=== PATIENT | female | born 1995 | race Two or more races ===

== ENCOUNTER 2021-04-01 20:05 | Inpatient (IN) | payer BC, OTHER ==
[2021-04-01] MEDS ORDERED: MAGNESIUM SULFATE 20GM/500ML - 20 GM/500 ML INFUS.BAG ONE (21:22)
[2021-04-01] MEDS: DEXTROSE 5%-LACTATED RINGERS 1,000 ML IV SCH (21:30)
[2021-04-01] MEDS ORDERED: MAGNESIUM SULFATE 20GM/500ML - 20 GM/500 ML INFUS.BAG IVPB SCH (21:30)
[2021-04-01] MEDS ORDERED: BETAMET ACET/BETAMET NA PH 30 MG/5 ML VIAL IM ONE (21:31)
[2021-04-01] MEDS ORDERED: BETAMET ACET/BETAMET NA PH 30 MG/5 ML VIAL ONE (21:42)
[2021-04-01 21:50] LABS: BASO % 0.4 % (0-2.0); EOS % 4.4 % (0-4.5); HEMATOCRIT 28.4 % (32.4-45.2); HEMOGLOBIN 9.3 GM/dL (10.7-15.3); LYMPH % 35.2 % (8-40); MCHC 32.8 g/dl (32.0-36.0); MEAN CELL VOLUME 76.2 fl (80-96); MEAN PLT VOLUME 6.7 fl (7.5-11.1); MONO % 7.6 % (3.8-10.2); NEUT % 52.4 % (42.8-82.8); PLATELET COUNT 242 K/MM3 (134-434); RBC 3.73 M/mm3 (3.60-5.2); RDW 16.7 % (11.6-15.6); WHITE BLOOD COUNT 6.8 K/mm3 (4.0-10.0)
[2021-04-01 21:56] LABS: INR 0.99 (0.83-1.09)
[2021-04-01 21:59] LABS: ACTIVATED PTT 24.1 SECONDS (25.2-36.5)
[2021-04-01 22:25] LABS: BLOOD UREA NITROGEN 6.2 mg/dL (7-18); CALCIUM 7.8 mg/dL (8.5-10.1); CREATININE 0.5 mg/dL (0.55-1.3)
[2021-04-01 22:48] LABS: EPI CELLS 7 /uL (0-25.1); HYALINE CASTS 0 /uL (0-3.1); PH,URINE 7.5 (5.0-8.0); URINE APPEARANCE CLEAR; URINE BACTERIA 156 /uL (0-1359); URINE BILIRUBIN NEGATIVE (NEGATIVE); URINE COLOR ORANGE; URINE GLUCOSE (UA) NEGATIVE (NEGATIVE); URINE KETONE NEGATIVE (NEGATIVE); URINE LEUK ESTERASE TRACE (NEGATIVE); URINE NITRITE NEGATIVE (NEGATIVE); URINE PROTEIN TRACE (NEGATIVE); URINE RBC 2682 /uL (0-23.9); URINE WBC 8 /uL (0-25.8)
[2021-04-01 23:01] LABS: HIV INTERPRETATION NEGATIVE (NEGATIVE)
[2021-04-01] MEDS ORDERED: CITRIC ACID/SODIUM CITRATE 30 ML UNIT-DOSE CUP PO ONE (23:35)
[2021-04-01] MEDS ORDERED: MAGNESIUM 4GM/H20 - 4 GM/100 ML IVPB IVPB SCH (23:45)
[2021-04-02 00:21] VITALS: BMI 37.5
[2021-04-02] MEDS: DOCUSATE SODIUM 100 MG CAPSULE (FP) PO SCH ×3 (06:00→22:00)
[2021-04-02] MEDS ORDERED: RHO(D) IMMUNE GLOBULIN 1,500 UNIT DISP.SYRIN IM ONE ×2 (06:36→15:37)
[2021-04-02] MEDS ORDERED: MAGNESIUM SULFATE 20GM/500ML - 20 GM/500 ML INFUS.BAG ONE (15:28)
[2021-04-02] MEDS ORDERED: BETAMET ACET/BETAMET NA PH 30 MG/5 ML VIAL IM ONE (19:45)
[2021-04-02] MEDS ORDERED: MAGNESIUM SULFATE 20GM/500ML - 20 GM/500 ML INFUS.BAG IVPB SCH (19:45)
[2021-04-02] MEDS ORDERED: SODIUM CHLORIDE 500 ML IV ONE (22:00)
[2021-04-02] MEDS: SODIUM CHLORIDE 1,000 ML IV SCH (22:45)
[2021-04-03] MEDS: DEXTROSE 5%-LACTATED RINGERS 1,000 ML IV SCH (07:44)
[2021-04-03] MEDS: DOCUSATE SODIUM 100 MG CAPSULE (FP) PO SCH ×3 (07:44→22:52)
[2021-04-03] MEDS: SODIUM CHLORIDE 1,000 ML IV SCH (16:52)
[2021-04-03] MEDS: FERROUS SO4 325 MG TABLET (FP) PO SCH (22:52)
[2021-04-03] MEDS ORDERED: DEXTROSE 5%-LACTATED RINGERS 1,000 ML IV SCH (23:25)
[2021-04-04] MEDS: DOCUSATE SODIUM 100 MG CAPSULE (FP) PO SCH ×3 (08:10→21:41)
[2021-04-04 08:46] LABS: BASO % 0.1 % (0-2.0); EOS % 0.4 % (0-4.5); HEMATOCRIT 25.5 % (32.4-45.2); HEMOGLOBIN 8.6 GM/dL (10.7-15.3); LYMPH % 39.9 % (8-40); MCH 25.6 pg (25.7-33.7); MCHC 33.5 g/dl (32.0-36.0); MEAN CELL VOLUME 76.4 fl (80-96); MEAN PLT VOLUME 6.6 fl (7.5-11.1); MONO % 7.2 % (3.8-10.2); NEUT % 52.4 % (42.8-82.8); PLATELET COUNT 234 K/MM3 (134-434); RBC 3.34 M/mm3 (3.60-5.2); RDW 16.8 % (11.6-15.6); WHITE BLOOD COUNT 7.2 K/mm3 (4.0-10.0)
[2021-04-04] MEDS: FERROUS SO4 325 MG TABLET (FP) PO SCH ×2 (09:32→21:41)
[2021-04-04] MEDS ORDERED: FERRIC CARBOXYMALTOSE 750 MG in SODIUM CHLORIDE 250 ML IVPB ONE (10:45)
[2021-04-04] MEDS ORDERED: CITRIC ACID/SODIUM CITRATE 30 ML UNIT-DOSE CUP PO ONE (20:15)
[2021-04-05] MEDS: DOCUSATE SODIUM 100 MG CAPSULE (FP) PO SCH ×3 (06:48→21:10)
[2021-04-05] MEDS: FERROUS SO4 325 MG TABLET (FP) PO SCH ×2 (09:38→21:09)
[2021-04-06] MEDS: DOCUSATE SODIUM 100 MG CAPSULE (FP) PO SCH ×2 (06:43→13:31)
[2021-04-06] MEDS: FERROUS SO4 325 MG TABLET (FP) PO SCH (09:44)
[2021-04-06 14:44] VITALS: BP 98/67; PULSE 98; TEMP 99
== END 2021-04-06 17:00 | disposition home or self-care (01) | DRG 833 ==
LOC: JDEL 20:05 → JLDR 20:30 → J3W 04-03 11:25
PROVIDERS: ADMIT Obstetrics & Gynecology Maternal & Fetal Medicine; ATTEND Obstetrics & Gynecology Maternal & Fetal Medicine
DX: O46.8X3 Other antepartum hemorrhage, third trimester (principal); Z3A.33 33 weeks gestation of pregnancy
CPT/HCPCS: 36415; 80048; 81003; 82962; 83735; 85025; 85610; 85730; 86762; 86780; 86850; 86870; 86900; 86901; 86902; 86999; 87086; 87340; 87389; 96372; C9803; J1439; J1561; U0003; U0005

== ENCOUNTER 2021-04-12 16:15 | Inpatient (IN) | payer BC, OTHER ==
[2021-04-12] MEDS ORDERED: DEXTROSE 5%-LACTATED RINGERS 1,000 ML IV SCH (19:30)
[2021-04-12] MEDS ORDERED: RHO(D) IMMUNE GLOBULIN 1,500 UNIT DISP.SYRIN IM ONE (19:52)
[2021-04-12] MEDS ORDERED: NIFEdipine 10 MG CAPSULE (FP) ONE (20:22)
[2021-04-12] MEDS ORDERED: NIFEdipine 10 MG CAPSULE (FP) PO ONE (20:25)
[2021-04-12 20:30] LABS: BASO % 0.3 % (0-2.0); EOS % 1.7 % (0-4.5); HEMATOCRIT 32.5 % (32.4-45.2); HEMOGLOBIN 10.5 GM/dL (10.7-15.3); LYMPH % 39.5 % (8-40); MCH 25.7 pg (25.7-33.7); MCHC 32.3 g/dl (32.0-36.0); MEAN CELL VOLUME 79.7 fl (80-96); MEAN PLT VOLUME 6.8 fl (7.5-11.1); MONO % 7.4 % (3.8-10.2); NEUT % 51.1 % (42.8-82.8); PLATELET COUNT 221 K/MM3 (134-434); RBC 4.08 M/mm3 (3.60-5.2); RDW 18.9 % (11.6-15.6); WHITE BLOOD COUNT 8.2 K/mm3 (4.0-10.0)
[2021-04-12 20:37] LABS: INR 0.97 (0.83-1.09)
[2021-04-12 20:39] LABS: ACTIVATED PTT 24.6 SECONDS (25.2-36.5)
[2021-04-12 20:53] LABS: CALCIUM 8.9 mg/dL (8.5-10.1)
[2021-04-12 20:54] LABS: BLOOD UREA NITROGEN 6.2 mg/dL (7-18)
[2021-04-12 20:57] LABS: CREATININE 0.4 mg/dL (0.55-1.3)
[2021-04-12 21:24] VITALS: BMI 38.4
[2021-04-13] MEDS: NIFEdipine 10 MG CAPSULE (FP) PO SCH ×3 (08:53→22:13)
[2021-04-13] MEDS ORDERED: NIFEdipine 10 MG CAPSULE (FP) ONE (10:06)
[2021-04-13] MEDS ORDERED: FERROUS SO4 325 MG TABLET (FP) PO ONE (16:59)
[2021-04-13] MEDS ORDERED: FERROUS SO4 325 MG TABLET (FP) ONE (18:35)
[2021-04-13] MEDS: DOCUSATE SODIUM 100 MG CAPSULE (FP) PO SCH (22:13)
[2021-04-14] MEDS: NIFEdipine 10 MG CAPSULE (FP) PO SCH ×3 (10:18→22:35)
[2021-04-14] MEDS: DOCUSATE SODIUM 100 MG CAPSULE (FP) PO SCH ×2 (10:20→22:35)
[2021-04-15 08:31] LABS: BASO % 0.3 % (0-2.0); EOS % 1.7 % (0-4.5); HEMATOCRIT 30.9 % (32.4-45.2); HEMOGLOBIN 10.1 GM/dL (10.7-15.3); LYMPH % 36.2 % (8-40); MCHC 32.8 g/dl (32.0-36.0); MEAN CELL VOLUME 79.2 fl (80-96); MEAN PLT VOLUME 6.9 fl (7.5-11.1); NEUT % 54.8 % (42.8-82.8); PLATELET COUNT 199 K/MM3 (134-434); RDW 21.6 % (11.6-15.6); WHITE BLOOD COUNT 7.1 K/mm3 (4.0-10.0)
[2021-04-15] MEDS: DOCUSATE SODIUM 100 MG CAPSULE (FP) PO SCH ×2 (09:56→21:50)
[2021-04-15] MEDS: NIFEdipine 10 MG CAPSULE (FP) PO SCH ×2 (09:56→21:50)
[2021-04-15 10:45] LABS: ANISOCYTOSIS 1+; MACROCYTOSIS 0; PLATELET ESTIMATE NORMAL; TEAR DROP CELLS 1+
[2021-04-16] MEDS ORDERED: FERROUS SO4/VIT C/FA 1 EACH TABLET.ER PO SCH (10:00)
[2021-04-16] MEDS: DOCUSATE SODIUM 100 MG CAPSULE (FP) PO SCH ×2 (11:04→21:32)
[2021-04-16] MEDS: NIFEdipine 10 MG CAPSULE (FP) PO SCH ×2 (11:32→21:32)
[2021-04-17] MEDS: NIFEdipine 10 MG CAPSULE (FP) PO SCH ×2 (10:20→21:49)
[2021-04-17] MEDS: DOCUSATE SODIUM 100 MG CAPSULE (FP) PO SCH ×2 (10:20→21:49)
[2021-04-18] MEDS: DOCUSATE SODIUM 100 MG CAPSULE (FP) PO SCH ×2 (09:31→21:41)
[2021-04-18] MEDS: NIFEdipine 10 MG CAPSULE (FP) PO SCH ×2 (09:52→21:41)
[2021-04-19] MEDS: NIFEdipine 10 MG CAPSULE (FP) PO SCH ×2 (09:47→21:35)
[2021-04-19] MEDS: DOCUSATE SODIUM 100 MG CAPSULE (FP) PO SCH ×2 (09:47→21:34)
[2021-04-20] MEDS: DOCUSATE SODIUM 100 MG CAPSULE (FP) PO SCH (10:39)
[2021-04-20] MEDS: NIFEdipine 10 MG CAPSULE (FP) PO SCH (10:39)
[2021-04-20] MEDS ORDERED: BETAMET ACET/BETAMET NA PH 30 MG/5 ML VIAL IM ONE (15:33)
[2021-04-20] MEDS: LACTATED RINGERS SOLUTION 1,000 ML/1,000 ML INFUS.BAG IV SCH (16:15)
[2021-04-20] MEDS ORDERED: BETAMET ACET/BETAMET NA PH 30 MG/5 ML VIAL ONE (16:25)
[2021-04-20] MEDS: VITRON C PO SCH (16:40)
[2021-04-20 17:05] LABS: BASO % 0.8 % (0-2.0); EOS % 1.2 % (0-4.5); HEMATOCRIT 32.7 % (32.4-45.2); HEMOGLOBIN 10.6 GM/dL (10.7-15.3); LYMPH % 35.4 % (8-40); MCH 26.5 pg (25.7-33.7); MCHC 32.5 g/dl (32.0-36.0); MEAN CELL VOLUME 81.3 fl (80-96); MEAN PLT VOLUME 6.6 fl (7.5-11.1); MONO % 6.7 % (3.8-10.2); NEUT % 55.9 % (42.8-82.8); PLATELET COUNT 224 K/MM3 (134-434); RBC 4.02 M/mm3 (3.60-5.2); RDW 23.7 % (11.6-15.6); WHITE BLOOD COUNT 6.5 K/mm3 (4.0-10.0)
[2021-04-20 17:10] LABS: INR 0.97 (0.83-1.09)
[2021-04-20 17:13] LABS: ACTIVATED PTT 25.2 SECONDS (25.2-36.5)
[2021-04-20 18:48] LABS: ANISOCYTOSIS 3+; MACROCYTOSIS 0; PLATELET ESTIMATE NORMAL
[2021-04-20] MEDS ORDERED: morphine SULFATE/PF 0.5 MG/ML (2cc Syringe - QUVA) ONE (19:07)
[2021-04-20] MEDS ORDERED: OXYTOCIN 20 UNITS in 0.9% NS 20 UNIT/1,000 ML INFUS.BAG IV ONE ×2 (19:12→23:42)
[2021-04-20] MEDS ORDERED: KETAMINE HCL 500 MG/10 ML VIAL ONE (20:13)
[2021-04-20] MEDS ORDERED: MIDAZOLAM HCL 2 MG/2 ML SINGLE DOSE VIAL ONE (20:15)
[2021-04-20] MEDS ORDERED: PHENYLEPHRINE HCL 10 MG/1 ML SINGLE DOSE VIAL ONE (20:18)
[2021-04-20] MEDS ORDERED: DEXAMETHASONE SOD PHOSPHATE 4 MG/1 ML VIAL ONE (20:19)
[2021-04-20] MEDS ORDERED: ONDANSETRON 4 MG/2 ML VIAL ONE (20:19)
[2021-04-20] MEDS ORDERED: ceFAZolin SODIUM 1 GM VIAL ONE (20:19)
[2021-04-20] MEDS ORDERED: GLYCOPYRROLATE 0.2 MG/1 ML VIAL ONE (20:19)
[2021-04-20 20:45] LABS: CORD HCO3 24.7 mmHg (20-29); CORD PCO2 50.6 mmHg (30-78); CORD pH 7.307 (7.14-7.44)
[2021-04-20 20:46] LABS: CORD BASE EXCESS -2.1 mmol/L (0-2); CORD HCO3 23.4 mmHg (20-29); CORD PCO2 42.6 mmHg (30-78); CORD pH 7.357 (7.14-7.44)
[2021-04-20] MEDS ORDERED: ACETAMINOPHEN 1000 MG/100 ML VIAL (NON FORMULARY) IVPB PRN (21:38)
[2021-04-20] MEDS ORDERED: ONDANSETRON 4 MG/2 ML VIAL IVPUSH PRN (21:38)
[2021-04-20] MEDS ORDERED: METHYLERGONOVINE MALEATE 0.2 MG/1 ML AMP IM PRN (23:12)
[2021-04-21 07:24] LABS: BASO % 0.1 % (0-2.0); HEMATOCRIT 28.5 % (32.4-45.2); HEMOGLOBIN 9.3 GM/dL (10.7-15.3); LYMPH % 16.3 % (8-40); MCH 26.6 pg (25.7-33.7); MCHC 32.7 g/dl (32.0-36.0); MEAN CELL VOLUME 81.4 fl (80-96); MEAN PLT VOLUME 6.9 fl (7.5-11.1); MONO % 6.5 % (3.8-10.2); NEUT % 77.1 % (42.8-82.8); PLATELET COUNT 214 K/MM3 (134-434); RDW 24.2 % (11.6-15.6); WHITE BLOOD COUNT 9.9 K/mm3 (4.0-10.0)
[2021-04-21] MEDS: DOCUSATE SODIUM 100 MG CAPSULE (FP) PO SCH ×4 (08:39→23:15)
[2021-04-21] MEDS: VITRON C PO SCH (16:00)
[2021-04-21] MEDS: oxyCODONE HCL 5 MG TABLET PO PRN ×2 (17:26→23:41)
[2021-04-21] MEDS: SIMETHICONE 80 MG TAB.CHEW (FP) PO PRN ×2 (17:27→23:40)
[2021-04-21] MEDS: FERROUS SO4 325 MG TABLET (FP) PO SCH (17:27)
[2021-04-21] MEDS: IBUPROFEN 600 MG TABLET (FP) PO PRN ×2 (17:27→23:40)
[2021-04-22] MEDS: IBUPROFEN 600 MG TABLET (FP) PO PRN ×4 (06:01→21:25)
[2021-04-22] MEDS: SIMETHICONE 80 MG TAB.CHEW (FP) PO PRN ×4 (06:01→21:25)
[2021-04-22] MEDS: FERROUS SO4 325 MG TABLET (FP) PO SCH ×3 (08:59→17:27)
[2021-04-22] MEDS: VITRON C PO SCH (09:00)
[2021-04-22] MEDS: DOCUSATE SODIUM 100 MG CAPSULE (FP) PO SCH ×2 (09:03→21:24)
[2021-04-22] MEDS: LACTATED RINGERS SOLUTION 1,000 ML/1,000 ML INFUS.BAG IV SCH (16:43)
[2021-04-23] MEDS: IBUPROFEN 600 MG TABLET (FP) PO PRN ×3 (06:37→18:33)
[2021-04-23] MEDS: SIMETHICONE 80 MG TAB.CHEW (FP) PO PRN ×3 (06:37→18:33)
[2021-04-23 08:03] LABS: BASO % 0.3 % (0-2.0); EOS % 0.9 % (0-4.5); HEMATOCRIT 27.2 % (32.4-45.2); HEMOGLOBIN 8.9 GM/dL (10.7-15.3); LYMPH % 37.1 % (8-40); MCHC 32.9 g/dl (32.0-36.0); MEAN CELL VOLUME 81.9 fl (80-96); MEAN PLT VOLUME 6.8 fl (7.5-11.1); MONO % 6.8 % (3.8-10.2); NEUT % 54.9 % (42.8-82.8); PLATELET COUNT 212 K/MM3 (134-434); RBC 3.32 M/mm3 (3.60-5.2); RDW 25.4 % (11.6-15.6); WHITE BLOOD COUNT 7.5 K/mm3 (4.0-10.0)
[2021-04-23] MEDS: FERROUS SO4 325 MG TABLET (FP) PO SCH ×2 (08:26→18:25)
[2021-04-23] MEDS: DOCUSATE SODIUM 100 MG CAPSULE (FP) PO SCH ×2 (09:58→22:03)
[2021-04-23] MEDS: VITRON C PO SCH (09:59)
[2021-04-23] MEDS: LACTATED RINGERS SOLUTION 1,000 ML/1,000 ML INFUS.BAG IV SCH (15:52)
[2021-04-23] MEDS: SERTRALINE HCL 25 MG TABLET (FP) PO SCH (22:03)
[2021-04-24] MEDS: IBUPROFEN 600 MG TABLET (FP) PO PRN ×2 (02:42→08:57)
[2021-04-24] MEDS: FERROUS SO4 325 MG TABLET (FP) PO SCH (08:57)
[2021-04-24] MEDS: SIMETHICONE 80 MG TAB.CHEW (FP) PO PRN (08:58)
[2021-04-24] MEDS: VITRON C PO SCH (09:00)
[2021-04-24] MEDS: DOCUSATE SODIUM 100 MG CAPSULE (FP) PO SCH (09:00)
[2021-04-24] MEDS: SERTRALINE HCL 25 MG TABLET (FP) PO SCH (09:28)
[2021-04-24 12:02] VITALS: BP 104/72; PULSE 86; TEMP 98.4
== END 2021-04-24 11:30 | disposition home or self-care (01) | DRG 786 ==
LOC: JDEL 16:15 → JLDR 18:35 → J3W 04-13 20:00 → JLDR 04-20 15:30 → J3W 04-20 23:30
PROVIDERS: ADMIT Obstetrics & Gynecology Maternal & Fetal Medicine; ATTEND Obstetrics & Gynecology Maternal & Fetal Medicine
PROC: 3E0334Z Introduction of Serum, Toxoid and Vaccine into Peripheral Vein, Percutaneous Approach (ICD-10-PCS; 2021-04-13)
PROC: 10D00Z1 Extraction of Products of Conception, Low, Open Approach (ICD-10-PCS; principal; 2021-04-20)
DX: O45.93 Premature separation of placenta, unspecified, third trimester (principal); O60.14X0 Preterm labor third trimester with preterm delivery third trimester, not applicable or unspecified; O99.214 Obesity complicating childbirth; Z3A.34 34 weeks gestation of pregnancy; Z29.13 Encounter for prophylactic Rho(D) immune globulin; O32.8XX0 Maternal care for other malpresentation of fetus, not applicable or unspecified; O09.93 Supervision of high risk pregnancy, unspecified, third trimester; Z37.0 Single live birth
CPT/HCPCS: 36415; 36600; 80048; 82803; 82962; 85025; 85461; 85610; 85730; 86780; 86850; 86870; 86900; 86901; 86902; 86922; 86999; 87086; 88307-TC; 96372; C9803; J0131; J1561; U0003; U0005